=== PATIENT | female | born 1995 ===

== ENCOUNTER → 2018-10-03 23:02 | Outpatient (ROUT) | payer OTHER, SELFPAY ==
[2018-10-03 23:13] LABS: RBC Urine None Seen (0-5/HPF); WBC Urine None Seen (0-5/HPF)
[2018-10-04 01:29] LABS: Appearance Urine UA CLEAR; Bilirubin Urine UA NEGATIVE (NEGATIVE); Color Urine UA YELLOW; Glucose Urine UA NEGATIVE (Negative); Ketones Urine UA NEGATIVE (NEGATIVE); Leukocyte Esterase Urine UA NEGATIVE (NEGATIVE); Nitrite Urine UA NEGATIVE (Negative); Occult Blood Urine UA NEGATIVE (Negative); Protein Urine UA NEGATIVE (Negative); Specific Gravity Urine UA 1.025 (1.000-1.035); Urobilinogen Urine UA 0.2 E.U./dL (0.2); pH Urine UA 5.5 (4.5-8.0)
[2018-10-04 02:01] LABS: Bacteria Urine Few (2-10); Squamous Epithelial Cell Urine 0-1 /HPF (0-5/HPF)
[2018-10-04 02:02] LABS: Culture Indicated Urine Cult Not Indicated
[2018-10-04 02:31] LABS: Erythrocyte Sedimentation Rate 12 MM/HR (0-20)
[2018-10-09 17:51] LABS: C.albicans IgA 0.2; C.albicans IgG 0.5; C.albicans IgM 0.5 (<1.0)
== END ==
PROVIDERS: Visit Provider Naturopath
DX: R10.9 Unspecified abdominal pain (principal); R53.83 Other fatigue; D64.9 Anemia, unspecified; M25.569 Pain in unspecified knee; R63.5 Abnormal weight gain; R31.9 Hematuria, unspecified; R21 Rash and other nonspecific skin eruption
CPT/HCPCS: 36415; 81001; 85651; 86628